=== PATIENT | female | born 1990 | race Caucasian/White ===

== ENCOUNTER 2020-10-04 22:40 | Emergency (ER) | payer BC, SELFPAY ==
--- NOTE | ~2020-10-04 | XR_ITS ---
XR elbow LT min 3V DATE: 10/04/2020 23:04 INDICATION: Pain, swelling following after injury from fall TECHNIQUE: 4 views COMPARISON: None FINDINGS: No fracture or dislocation or joint effusion. No periosteal reaction or bone destruction. IMPRESSION: Negative Reviewed, dictated and finalized at location A. [employer]SE [employer]IVER IMPRESSION: Negative
[2020-10-04 22:44] VITALS: BP 131/92; PULSE 94; RESP 18; TEMP 36.8; O2SAT 96
--- NOTE | 2020-10-04 23:26 | ED.GENADULT ---
HPI - General Adult General Chief complaint: Extremity Injury, Upper Stated complaint: fall, elbow pain Time Seen by Provider: 10/04/20 22:52 History of Present Illness HPI narrative: Patient a 30-year-old female presents emergency department with chief complaint of left elbow pain. Patient states that this evening she slipped on some ice and fell and landed on her left elbow. Patient states she has pain with range of motion reports she has a little bit of tingling along the ulnar nerve distribution but states that she otherwise has normal sensation. Patient states she has normal overhead irrigator strength. Patient denies laceration denies head injury or loss of consciousness. Related Data Home Medications Medication Instructions Recorded Confirmed loratadine [Claritin] mg 10/04/20 Allergies Allergy/AdvReac Type Severity Reaction Status Date / Time Penicillins Allergy Rash Verified 10/04/20 22:51 Review of Systems Review of Systems: Narrative: A 10 system review of systems was completed on the patient and is negative except for what is stated in the HPI. Nursing and ancillary documentation was reviewed. 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 HEAD: Normocephalic, atraumatic. EYES: PERRLA and EOMI. ENT: Nares clear, no rhinorrhea or epistaxis. Mucous membranes moist. NECK: Supple. CHEST: Clear to auscultation. No respiratory distress. HEART: Regular rate and rhythm. No murmur heard. Normal peripheral pulses. ABDOMEN: Soft, nontender, nondistended, normal active bowel sounds. EXTREMITIES: Normal range of motion. No edema. There is tenderness to palpation in the left elbow there is no laceration there is no bruising. SKIN: Warm, dry, no rash. NEURO: No focal deficits. Alert and oriented x3. PSYCH: Normal mood and affect. Course Course Emergency Course: Plain film x-rays of the left elbow showed no evidence of fracture. Given the patient's pain she will be placed in a sling for comfort patient was instructed to rest elevate and ice and use ibuprofen for the discomfort. Vital Signs Vital signs: Vital Signs Temperature 36.8 C 10/04/20 22:44 Pulse Rate 94 10/04/20 22:44 Respiratory Rate 18 10/04/20 22:44 Blood Pressure 131/92 H 10/04/20 22:44 Pulse Oximetry 96 10/04/20 22:44 Temperature 36.8 C 10/04/20 22:44 Pulse Rate 94 10/04/20 22:44 Respiratory Rate 18 10/04/20 22:44 Blood Pressure 131/92 H 10/04/20 22:44 Pulse Oximetry 96 10/04/20 22:44 Medical Decision Making Vital Signs Vital Signs: Vital Signs Temperature 36.8 C 10/04/20 22:44 Pulse Rate 94 10/04/20 22:44 Respiratory Rate 18 10/04/20 22:44 Blood Pressure 131/92 H 10/04/20 22:44 Pulse Oximetry 96 10/04/20 22:44 Temperature 36.8 C 10/04/20 22:44 Pulse Rate 94 10/04/20 22:44 Respiratory Rate 18 10/04/20 22:44 Blood Pressure 131/92 H 10/04/20 22:44 Pulse Oximetry 96 10/04/20 22:44 Discharge Plan Discharge Clinical Impression: Elbow contusion Qualifiers: Encounter type: initial encounter Laterality: left Qualified Code(s): S50.02XA - Contusion of left elbow, initial encounter Elbow sprain Qualifiers: Encounter type: initial encounter Laterality: left Qualified Code(s): S53.402A - Unspecified sprain of left elbow, initial encounter Patient Disposition: Home, Self-Care Condition: Stable Instructions: Antibiotic Form, Contusion in Children (DC), How to Use a Sling (ED), Elbow Sprain (ED) Prescriptions: No Action loratadine [Claritin] 10 mg Tablet RF: 0 Follow-up/Referrals: Marc Prasad MD [Physician] - PHYSICIAN,DATA WAREHOUSE SPECIALIST [Primary Care Provider] - Stand Alone Forms: Work/School Release IP Time of Disposition: 23:30
[2020-10-04 23:44] VITALS: BP 122/84; PULSE 76; RESP 20; O2SAT 98
== END 2020-10-04 23:47 | disposition home or self-care (01) ==
PROVIDERS: Emergency Provider Emergency Medicine
DX: S50.02XA Contusion of left elbow, initial encounter (principal); S53.402A Unspecified sprain of left elbow, initial encounter; W00.0XXA Fall on same level due to ice and snow, initial encounter
CPT/HCPCS: 73080; 99283; A4565